=== PATIENT | male | born 1995 | race Two or more races ===

== ENCOUNTER 2024-08-18 21:27 | Emergency (ER) | payer OTHER ==
[~2024-08-18] VITALS: Ht 182.9 cm; Wt 77.1 kg
[2024-08-18] MEDS ORDERED: GUAIFENESIN 200 MG/10 ML BLIST.PACK PO ONE (22:15)
[2024-08-18] MEDS ORDERED: GUAIFENESIN/DEXTROMETHORPHAN 100MG/10ML BLIST.PACK PO ONE (22:33)
[2024-08-18 23:18] LABS: HEMATOCRIT 44.5 % (39.0-48.0); MEAN CELL VOLUME 85.7 fL (80.0-100.00); MEAN CORPUSCULAR HEMOGLOBIN 28.8 pg (27.00-32.0); MEAN CORPUSCULAR HGB CONC 33.6 g/dl (32.0-36.0); PLATELET COUNT 219 K/uL (150-450); RED BLOOD COUNT 5.19 M/uL (4.00-6.00); RED CELL DISTRIBUTION WIDTH 13.4 % (11.5-14.5)
[2024-08-18 23:43] LABS: COVID-19 AG NEGATIVE (NEGATIVE); INFLUENZA A AG NEGATIVE (NEGATIVE)
== END 2024-08-19 00:33 | disposition home or self-care (01) ==
LOC: ER 21:29
PROVIDERS: General Practice
DX: B34.9 Viral infection, unspecified (principal); R05.9 Cough, unspecified; Z20.822 Contact with and (suspected) exposure to COVID-19; Z91.013 Allergy to seafood